=== PATIENT | female | born 1945 | race Caucasian/White ===

== ENCOUNTER 2017-12-06 10:31 | Emergency (ER) | payer MEDICARE, OTHER ==
[~2017-12-06] VITALS: Ht 162.6 cm; Wt 102.6 kg
[~2017-12-06 10:31] MED LIST: AMILORIDE HCL5 MG PO; ATORVASTATIN CA40 MG PO; CYANOCOBAL1000 MCG/M SC; CYANOCOBALAM1000 MCG IJ; EFFEXOR XR75 MG OR; FLUARIX QUADRIV1 INJ IM; FLUZONE SPLT1 M1 IM; GNP POTASSIUM99 MG OR; HYZAAR1 TA1 OR; K-TAB20 MEQ PO; LISINOP/HCTZ1 TAB PO; LOVENOX80 MG/0.8 SC; MAG CITRAT1 PO; MAG-G500 MG PO; MAGNESIUM4 GM/100 M IV; NEXIUM20 M1 OR; NORCO1 TA1 PO; OMEPRAZOLE20 MG PO; SLOW-MAG PO; SODIUM BICAR650 MG PO; TRAMADL/APAP OR; TRAMADOL HCL50 MG PO; TYLENOL PM PO; VENLAFAXINE H37.5 MG PO; VENLAFAXINE37.5 M1 PO; VITAMIN D31000 UNI1 OR; VITAMIN D3400 UNIT PO; VITAMIN D50000 UN1 PO; WARFARIN1 MG PO; WARFARIN2 MG PO; WARFARIN4 MG OR; WARFARIN4 MG PO; ZOCOR10 MG PO; ZOFRAN4 MG/TAB PO; [UNRECOGNIZED DRUG - CODE] PO; [UNRECOGNIZED DRUG - OTHER] PO
[2017-12-06] MEDS ORDERED: WARFARIN1 MG PO (10:47)
[2017-12-06] MEDS ORDERED: SODIUM BICARBI650 MG PO (10:48)
[2017-12-06] MEDS ORDERED: MAGNESI12 PO (11:08)
[2017-12-06 11:55] VITALS: BP 123/74
== END 2017-12-06 11:55 | disposition home or self-care (01) ==
LOC: ED 10:31
DX: S80.01XA Contusion of right knee, initial encounter (principal); S40.011A Contusion of right shoulder, initial encounter; W01.0XXA Fall on same level from slipping, tripping and stumbling without subsequent striking against object, initial encounter; Y93.89 Activity, other specified; Y92.238 Other place in hospital as the place of occurrence of the external cause; E83.42 Hypomagnesemia

== ENCOUNTER 2018-04-06 10:13 | Outpatient (REF) | payer MEDICARE, OTHER ==
[~2018-04-06 10:13] MED LIST changes: +MAGNESI12 PO; +SODIUM BICARBI650 MG PO
[2018-04-06 10:52] LABS: MAGNESIUM 1.4 mg/dL (1.6-2.3); POTASSIUM 4.2 mmol/l (3.5-5.1)
== END 2018-04-06 11:00 | disposition home or self-care (01) ==
LOC: INF 10:13
PROVIDERS: ATTEND Internal Medicine Nephrology
DX: E83.42 Hypomagnesemia (principal)

== ENCOUNTER 2018-08-24 11:08 | Outpatient (REF) | payer MEDICARE, OTHER ==
[2018-08-24 11:48] LABS: MAGNESIUM 1.3 mg/dL (1.6-2.3); POTASSIUM 3.6 mmol/l (3.5-5.1)
== END 2018-08-24 13:25 | disposition home or self-care (01) ==
LOC: INF 11:08
PROVIDERS: ATTEND Internal Medicine Nephrology
DX: E83.42 Hypomagnesemia (principal)

== ENCOUNTER → 2018-08-28 | Outpatient (REF) | payer MEDICARE, OTHER ==
[2018-08-28 10:16] LABS: CREATININE 1.3 mg/dL (0.5-1.0); MAGNESIUM 1.4 mg/dL (1.6-2.3); POTASSIUM 3.8 mmol/l (3.5-5.1)
== END | disposition home or self-care (01) ==
LOC: INF 09:06 → LAB 09:06
PROVIDERS: ATTEND Nurse Practitioner Family
DX: E83.42 Hypomagnesemia (principal); E87.6 Hypokalemia

== ENCOUNTER → 2018-08-30 | Outpatient (REF) | payer MEDICARE, OTHER | END | disposition home or self-care (01) | LOC: DI 10:31 | PROVIDERS: ATTEND Nurse Practitioner Family | DX: R05 Cough (principal); R06.2 Wheezing ==

== ENCOUNTER → 2018-09-04 | Outpatient (REF) | payer MEDICARE, OTHER | END | disposition home or self-care (01) | LOC: LAB 10:16 | PROVIDERS: ATTEND Internal Medicine Nephrology | DX: N18.2 Chronic kidney disease, stage 2 (mild) (principal); E83.42 Hypomagnesemia ==

== ENCOUNTER 2018-10-18 06:50 | Day surgery (SDC) | payer MEDICARE, OTHER ==
[2018-10-18 10:10] VITALS: BP 108/57
== END 2018-10-18 09:39 | disposition home or self-care (01) ==
LOC: ENDO 06:50
PROVIDERS: ATTEND Surgery
PROC: 0DJD8ZZ Inspection of Lower Intestinal Tract, Via Natural or Artificial Opening Endoscopic (ICD-10-PCS; principal; 2018-10-18)
DX: Z12.11 Encounter for screening for malignant neoplasm of colon (principal); K56.609 Unspecified intestinal obstruction, unspecified as to partial versus complete obstruction; K64.4 Residual hemorrhoidal skin tags

== ENCOUNTER 2019-11-27 13:41 | Emergency (ER) | payer MEDICARE, OTHER ==
[2019-11-27 15:40] VITALS: BP 135/71
== END 2019-11-27 15:40 | disposition home or self-care (01) ==
LOC: ED 13:41
DX: M79.642 Pain in left hand (principal); M25.532 Pain in left wrist; I10 Essential (primary) hypertension; M79.89 Other specified soft tissue disorders

== ENCOUNTER 2021-12-04 10:59 | Observation (INO) | payer MEDICARE, OTHER ==
[~2021-12-04] VITALS: Ht 162.6 cm; Wt 88.0 kg
[2021-12-04 11:07] VITALS: BP 136/64
[2021-12-04] MEDS ORDERED: WARFARIN3 MG PO (11:19)
[2021-12-04] MEDS ORDERED: WARFARIN6 MG PO (11:20)
[2021-12-04 11:30] LABS: HEMATOCRIT 37.5 % (37.0-47.0); HEMOGLOBIN 12.1 g/dl (12.0-16.0); MEAN CELL VOLUME 101.9 fL CALC (80.0-100.0); MEAN CORPUSCULAR HGB 32.9 pG CALC (26.0-32.0); MEAN CORPUSCULAR HGB CONC 32.3 g/dL CAL (32.0-36.0); NEUT# 3.09 thou/uL (2.00-7.15); RED BLOOD COUNT 3.68 mill/uL (4.20-5.60); RED CELL DISTRI WIDTH 13.3 % (11.5-15.5)
[2021-12-04 12:05] VITALS: BP 149/60
[2021-12-04 12:09] LABS: ALBUMIN 3.5 g/dL (3.2-5.0); ALKALINE PHOSPHATASE 108 u/l (38-126); BILIRUBIN, TOTAL 0.9 mg/dL (0.0-1.4); BUN 17 mg/dL (8-23); BUN/CREATININE RATIO 16 (12-20 (CALC)); CHLORIDE 110 mmol/l (95-108); GFR FOR AFR.AMER. > 60 ML/MIN (>=60 (CALC)); GFR OTHER RACES 54 ML/MIN (>=60 (CALC)); POTASSIUM 3.5 mmol/l (3.5-5.1); SGOT/AST 29 u/l (9-36); SODIUM 141 mmol/l (137-146); TOTAL PROTEIN 6.9 g/dL (6.3-8.2)
[2021-12-04 12:11] LABS: ANION GAP 13 (6-22 (CALC)); CARBON DIOXIDE 22 mmol/l (22-30)
[2021-12-04 12:16] LABS: PROTHROMBIN TIME 38.6 SECONDS (9.0-12.5)
[2021-12-04 12:20] LABS: URINE BILIRUBIN - DIPSTICK NEGATIVE (NEGATIVE); URINE BLOOD DIPSTICK LARGE (NEGATIVE); URINE COLOR RED; URINE GLUCOSE - DIPSTICK NEGATIVE (NEGATIVE); URINE KETONE NEGATIVE (NEGATIVE); URINE LEUK ESTERASE NEGATIVE (NEGATIVE); URINE PROTEIN - DIPSTICK >=300 mg/dL (NEG-TRACE); URINE SPECIFIC GRAVITY >=1.030; URINE UROBILINOGEN - DIPSTICK 0.2 E.U./dL (0.2)
[2021-12-04 12:23] LABS: URINE NITRITE - DIPSTICK NEGATIVE (Negative); URINE RBC >100 RBC/hpf (0-5)
[2021-12-04 12:24] LABS: URINE COARSE GRANULAR CAST FEW lpf
[2021-12-04 13:01] VITALS: BP 124/57
[2021-12-04 14:13] VITALS: BP 136/66
[2021-12-04] MEDS ORDERED: VITAMIN D1.25 MG PO (14:26)
[2021-12-04 14:51] VITALS: BP 136/66
[2021-12-04 19:22] VITALS: BP 98/49
[2021-12-05 00:04] VITALS: BP 96/45
[2021-12-05 04:14] VITALS: BP 105/44
[2021-12-05 06:00] LABS: HEMATOCRIT 32.4 % (37.0-47.0); HEMOGLOBIN 10.7 g/dl (12.0-16.0); MEAN CELL VOLUME 102.5 fL CALC (80.0-100.0); MEAN CORPUSCULAR HGB 33.9 pG CALC (26.0-32.0); RED BLOOD COUNT 3.16 mill/uL (4.20-5.60); RED CELL DISTRI WIDTH 13.4 % (11.5-15.5)
[2021-12-05 06:06] LABS: INTERNATIONAL NORMALIZED RATIO 3.2 RATIO (0.7-1.3); PROTHROMBIN TIME 31.4 SECONDS (9.0-12.5)
[2021-12-05 06:18] LABS: ANION GAP 9 (6-22 (CALC)); BUN 17 mg/dL (8-23); BUN/CREATININE RATIO 20 (12-20 (CALC)); CARBON DIOXIDE 24 mmol/l (22-30); CHLORIDE 112 mmol/l (95-108); CREATININE 0.9 mg/dL (0.5-1.0); GFR FOR AFR.AMER. > 60 ML/MIN (>=60 (CALC)); GFR OTHER RACES > 60 ML/MIN (>=60 (CALC)); POTASSIUM 3.6 mmol/l (3.5-5.1); SODIUM 141 mmol/l (137-146)
[2021-12-05 07:20] VITALS: BP 93/44
[2021-12-05 10:24] VITALS: BP 102/42
[2021-12-05 15:52] VITALS: BP 110/53
[2021-12-05 19:26] VITALS: BP 111/53
[2021-12-06 00:09] VITALS: BP 92/37
[2021-12-06 04:45] VITALS: BP 91/45
[2021-12-06 05:41] LABS: HEMATOCRIT 30.1 % (37.0-47.0); HEMOGLOBIN 9.5 g/dl (12.0-16.0); MEAN CELL VOLUME 104.5 fL CALC (80.0-100.0); MEAN CORPUSCULAR HGB CONC 31.6 g/dL CAL (32.0-36.0); NEUT# 1.63 thou/uL (2.00-7.15); RED BLOOD COUNT 2.88 mill/uL (4.20-5.60); RED CELL DISTRI WIDTH 13.5 % (11.5-15.5)
[2021-12-06 05:55] LABS: ALKALINE PHOSPHATASE 89 u/l (38-126); ANION GAP 9 (6-22 (CALC)); BILIRUBIN, TOTAL 0.6 mg/dL (0.0-1.4); BUN 16 mg/dL (8-23); BUN/CREATININE RATIO 19 (12-20 (CALC)); CARBON DIOXIDE 22 mmol/l (22-30); CHLORIDE 113 mmol/l (95-108); CREATININE 0.9 mg/dL (0.5-1.0); GFR FOR AFR.AMER. > 60 ML/MIN (>=60 (CALC)); GFR OTHER RACES > 60 ML/MIN (>=60 (CALC)); POTASSIUM 3.6 mmol/l (3.5-5.1); SGOT/AST 22 u/l (9-36); SODIUM 141 mmol/l (137-146)
[2021-12-06 05:56] LABS: ALBUMIN 2.4 g/dL (3.2-5.0); TOTAL PROTEIN 5.2 g/dL (6.3-8.2)
[2021-12-06 06:03] LABS: INTERNATIONAL NORMALIZED RATIO 2.2 RATIO (0.7-1.3); PROTHROMBIN TIME 21.9 SECONDS (9.0-12.5)
[2021-12-06 09:34] VITALS: BP 119/60
[2021-12-06 10:04] LABS: PROTHROMBIN TIME 20.3 SECONDS (9.0-12.5)
[2021-12-06 11:06] VITALS: BP 109/52
== END 2021-12-06 13:40 | disposition home or self-care (01) ==
LOC: ED 10:59 → ED-I 12:25 → ED 12:49 → MS2 12:50
PROVIDERS: Family Medicine; Internal Medicine; ADMIT Internal Medicine; ATTEND Internal Medicine
DX: R31.9 Hematuria, unspecified (principal); D68.32 Hemorrhagic disorder due to extrinsic circulating anticoagulants; T45.515A Adverse effect of anticoagulants, initial encounter; I10 Essential (primary) hypertension; K21.9 Gastro-esophageal reflux disease without esophagitis; F32.A Depression, unspecified; Z86.711 Personal history of pulmonary embolism; Z86.718 Personal history of other venous thrombosis and embolism; Z86.73 Personal history of transient ischemic attack (TIA), and cerebral infarction without residual deficits; Z20.822 Contact with and (suspected) exposure to COVID-19
CPT/HCPCS: G0378

== ENCOUNTER 2022-05-26 13:24 | Inpatient (IN) | payer MEDICARE, OTHER ==
[2022-05-26] VITALS (7 sets, daily range): BP systolic 88–143; BP diastolic 41–82
[~2022-05-26] VITALS: Ht 162.6 cm; Wt 84.0 kg
[~2022-05-26 13:24] MED LIST changes: +VITAMIN D1.25 MG PO; +WARFARIN3 MG PO; +WARFARIN6 MG PO
--- NOTE | 2022-05-26 13:24 | NUR ---
PT TO ROOM VIA WC ABLE TO TRANSFER SELF TO STRETCHER.
[2022-05-26] MEDS ORDERED: WARFARIN2 MG PO (14:01)
[2022-05-26 14:54] LABS: HEMATOCRIT 31.7 % (37.0-47.0); HEMOGLOBIN 10.7 g/dl (12.0-16.0); IMMATURE GRANULOCYTES 0.3 % (0.0-5.0); MEAN CELL VOLUME 99.1 fL CALC (80.0-100.0); MEAN CORPUSCULAR HGB 33.4 pG CALC (26.0-32.0); MEAN CORPUSCULAR HGB CONC 33.8 g/dL CAL (32.0-36.0); NEUT# 12.35 thou/uL (2.00-7.15); RED BLOOD COUNT 3.2 mill/uL (4.20-5.60)
[2022-05-26 15:08] LABS: ALBUMIN 2.8 g/dL (3.2-5.0); ALKALINE PHOSPHATASE 159 u/l (38-126); BUN 12 mg/dL (8-23); BUN/CREATININE RATIO 12 (12-20 (CALC)); CHLORIDE 104 mmol/l (95-108); GFR FOR AFR.AMER. > 60 ML/MIN (>=60 (CALC)); GFR OTHER RACES 54 ML/MIN (>=60 (CALC)); POTASSIUM 3.4 mmol/l (3.5-5.1); SGOT/AST 38 u/l (9-36); SODIUM 136 mmol/l (137-146); TOTAL PROTEIN 6.7 g/dL (6.3-8.2)
[2022-05-26 15:09] LABS: ANION GAP 10 (6-22 (CALC)); BILIRUBIN, TOTAL 2.5 mg/dL (0.0-1.4); CARBON DIOXIDE 25 mmol/l (22-30)
--- NOTE | 2022-05-26 16:00 | NUR ---
PT TO RADIOLOGY VIA WC ACCOMPANIED BY STAFF. ADVISED OF CURRENT POC.
--- NOTE | 2022-05-26 17:00 | NUR ---
red area on face, rt ear, chest outlined for monitoring.
--- NOTE | 2022-05-26 17:35 | NUR ---
pt updated with current poc.
--- NOTE | 2022-05-26 18:35 | NUR ---
pt medicated for c/o headache. lights dimmed comfort measures provide.
--- NOTE | 2022-05-26 19:00 | NUR ---
report provided to nurse shivam
--- NOTE | 2022-05-26 20:00 | NUR ---
PT BROUGHT TO NM IN STABLE CONDITION, NOT WEARING O2. BREATHING IS EVEN AND NON-LABORED, NO C/O SOB OR BREATHING DIFFICULTIES. PT ABLE TO AMBULATE WITH SUPERVISION, MINIMUM ASISTANCE. PT DENIES ANY PAIN OR DISCOMFORT. IV SITE FLUSHED, PATENT. PT ORIEBTATED TO ROOM, CALL SYSTEM AND ENCOURAGED TO USE CALL LIGHT. TELE MONITOR IN PLACE. PT DENIES ANY NEEDS AT THIS TIME. ALL SAFETY PRECAUTIONS IN PLACE AT THIS TIME.
[2022-05-27] VITALS (7 sets, daily range): BP systolic 83–111; BP diastolic 42–61
--- NOTE | 2022-05-27 | NUR ---
PT SLEEPING IN BED EASILY AROUSIBLE. PT SLIGHTLY CONFUSED WHEN WOKEN UP BUT EASILY REORIENTATED. PT BREATHING EVEN AND NON LABORED. IV SITE PATENT. PT DENIES NEEDING TO USE RESTROOM, NEEDING A DRINK/SNACK AND DENIES PAIN. DENIES ANY FURTHER NEEDS. ALL SAFETY PRECAUTIONS IN PLACE AT THIS TIME
--- NOTE | 2022-05-27 00:25 | NUR ---
CHECKED ON PT DUE TO LOW BLOOD PRESSURE. PT EASILY ARROUSED, SPEECH CLEAR, A/OX3. PT DID STAY AWAKE FOR SMALL CONVERSATION. PT DENIES ANY ODD FEELING OR PAIN. PT DENIES ANY NEEDS AT THIS TIME.
--- NOTE | 2022-05-27 03:16 | NUR ---
PT IN ROOM SLEEPING, AROUSED TO TOUCH. PT BREATHING REMAINS THE SAME. PT DENIES ANY NEEDS AT THIS TIME. TELE MONITOR IN PLACE. ALL SAFETY PRECAUTIONS IN PLACE AT THIS TIME.
[2022-05-27 05:28] LABS: HEMATOCRIT 30.7 % (37.0-47.0); HEMOGLOBIN 10.2 g/dl (12.0-16.0); MEAN CELL VOLUME 99.4 fL CALC (80.0-100.0); MEAN CORPUSCULAR HGB CONC 33.2 g/dL CAL (32.0-36.0); RED BLOOD COUNT 3.09 mill/uL (4.20-5.60); RED CELL DISTRI WIDTH 14.8 % (11.5-15.5)
[2022-05-27 06:06] LABS: ANION GAP 13 (6-22 (CALC)); BUN 13 mg/dL (8-23); BUN/CREATININE RATIO 13 (12-20 (CALC)); CARBON DIOXIDE 23 mmol/l (22-30); CHLORIDE 108 mmol/l (95-108); GFR FOR AFR.AMER. > 60 ML/MIN (>=60 (CALC)); GFR OTHER RACES 54 ML/MIN (>=60 (CALC)); POTASSIUM 3.5 mmol/l (3.5-5.1); SODIUM 140 mmol/l (137-146)
[2022-05-27 06:36] LABS: INTERNATIONAL NORMALIZED RATIO 4.5 RATIO (0.7-1.3); PROTHROMBIN TIME 41.7 SECONDS (9.0-12.5)
--- NOTE | 2022-05-27 06:43 | NUR ---
HIGH LABS RECIEVED FROM EDMEÑO IN LAB, INR 4.5 AND PT 41.7. INFORMED HEMMER CHAINSTITCH PHYSICAN AND WAS TOLD TO HOLD WARFARIN. WILL PASS ON IN REPORT.
--- NOTE | 2022-05-27 08:00 | NUR ---
BEDSIDE SHIFT REPORT, PT AWAKE ALERT AND ORIENTED RESTING IN BED, RIGHT FACE SWOLEN AND HARD, C/O MILD DISCOMFORT AT THIS TIME TO AREA, TELE MONITOR IN PLACE, CALL MODI IN REACH AND BED LOCKED IN LOWEST POSITION.
--- NOTE | 2022-05-27 12:05 | NUR ---
NO NEW COMPLAINS, CONDITION STABLE.
--- NOTE | 2022-05-27 14:51 | NUR ---
S: CATRACHITA YIP is a 76 F who presents with CELLULITIS . She has a history of SSTI. All medications in patient's chart were reviewed. O: VS: BP 90/50, P 76, RR 17,T 98.1 W 84KG, HT 64IN,CrCl= 64ml/min A: Blood culture is pending Urine culture is pending P: Vancomycin ordered for pharmacy to dose. Start Vancomycin 1 GRAM IV Q12H. Vancomycin trough is drawn before the 4th dose on 05/28/22 @0800. Vancomycin goal trough is between <15-20 mcg/ml>. Pharmacy will follow and or advise on antibiotics use as needed. JAMES KUD
--- NOTE | 2022-05-27 16:00 | NUR ---
RESTING IN BED, C/O PAIN TO LEFT FACE, MEDICATED, PAIN IMPROVED
[2022-05-27 20:15] LABS: URINE BILIRUBIN - DIPSTICK NEGATIVE (NEGATIVE); URINE BLOOD DIPSTICK NEGATIVE (NEGATIVE); URINE GLUCOSE - DIPSTICK NEGATIVE (NEGATIVE); URINE KETONE TRACE mg/dL (NEGATIVE); URINE LEUK ESTERASE NEGATIVE (NEGATIVE); URINE PROTEIN - DIPSTICK 30 mg/dL (NEG-TRACE); URINE SPECIFIC GRAVITY 1.025; URINE UROBILINOGEN - DIPSTICK 0.2 E.U./dL (0.2)
[2022-05-27 20:17] LABS: URINE COLOR DK. YELLOW; URINE NITRITE - DIPSTICK NEGATIVE (Negative)
[2022-05-27 20:23] LABS: URINE RBC 0-2 RBC/hpf (0-5); URINE SQUAMOUS EPITHELIAL CELL FEW EPI/hpf (0-FEW); URINE WBC 0-2 WBC/hpf (0-5)
--- NOTE | 2022-05-27 21:10 | NUR ---
PATIENT RESTING QUIETLY IN BED. ALERT AND ORIENTED X3. ASSESSMENT COMPLETE, PM MEDS ADMINISTERED. C/O MILD PAIN 2/, DECLINES OFFER OF TYLENOL. CALL LIGHT WITHIN REACH, INSTRUCTED TO CALL FOR ASSISTANCE.
[2022-05-28] VITALS (8 sets, daily range): BP systolic 90–110; BP diastolic 43–54
[2022-05-28 05:10] LABS: HEMATOCRIT 26.4 % (37.0-47.0); HEMOGLOBIN 8.8 g/dl (12.0-16.0); MEAN CELL VOLUME 98.5 fL CALC (80.0-100.0); MEAN CORPUSCULAR HGB 32.8 pG CALC (26.0-32.0); MEAN CORPUSCULAR HGB CONC 33.3 g/dL CAL (32.0-36.0); RED BLOOD COUNT 2.68 mill/uL (4.20-5.60); RED CELL DISTRI WIDTH 15.1 % (11.5-15.5)
[2022-05-28 05:17] LABS: INTERNATIONAL NORMALIZED RATIO 4.4 RATIO (0.7-1.3); PROTHROMBIN TIME 41.2 SECONDS (9.0-12.5)
[2022-05-28 05:33] LABS: ANION GAP 8 (6-22 (CALC)); BUN 13 mg/dL (8-23); BUN/CREATININE RATIO 14 (12-20 (CALC)); CARBON DIOXIDE 22 mmol/l (22-30); CHLORIDE 111 mmol/l (95-108); CREATININE 0.9 mg/dL (0.5-1.0); GFR FOR AFR.AMER. > 60 ML/MIN (>=60 (CALC)); GFR OTHER RACES > 60 ML/MIN (>=60 (CALC)); POTASSIUM 3.2 mmol/l (3.5-5.1); SODIUM 137 mmol/l (137-146)
[2022-05-28 05:51] LABS: MAGNESIUM 0.9 mg/dL (1.6-2.3)
--- NOTE | 2022-05-28 07:16 | NUR ---
BEDSIDE REPORT GIVEN, PT SLEEPING BUT AROUSES TO VERBAL STIMULI, C/O MILD PAIN TO RIGHT FACE, TELE MONITORIN PLACE, CALL MODI IN REACH AND BED LOCKED IN LOWEST POSITION.
--- NOTE | 2022-05-28 11:11 | NUR ---
S: CATRACHITA YIP is a 76 F who presents with CELLUITIS OF FACE She has a history of HYPERTENSION, GERD, DEPRESSION, HYPOKALEMIA, AND HYPOMAGNESIA. All medications in patient's chart were reviewed. O: VS: BP 99/51mmHg, P 75bpm, RR 18bpm,T 96.5F W 84kg, HT 64inches, Scr=0.9mg/dL,CrCl= 51ml/min A: Blood culture (preliminary) shows 1/4 gram positive cocci. P: Patient is on ZOYSN 3.375g IV Q6H. Vancomycin ordered for pharmacy to dose. CONTINUE Vancomycin 1g IV Q12H. Vancomycin trough is drawn before the 4th dose on 05/29/2022 @ 20:00. Vancomycin goal trough is between <10-15 mcg/ml>. Pharmacy will follow and or advise on antibiotics use as needed.
--- NOTE | 2022-05-28 11:52 | NUR ---
SITTING UP IN RECLINER, IV MEDS INFUSING, NO NEW COMPLAINS, CALL MODI IN REACH.
--- NOTE | 2022-05-28 13:29 | NUR ---
ASSISTED TO BR THEN BACK TO BED FOR AFTERNOON REST/NAP, CALL MODI IN REACH
--- NOTE | 2022-05-28 15:42 | NUR ---
PRELIMINARY BC RESULTS SHOW GRAM (+) COCCI IN 1/[address] V[address] RESULTS REPORTED TO DR DIAZ. PATIENT CURRENTLY RECEIVING VANCOMYCIN 1GM IV Q12H. NO NEW ORDERS.
[2022-05-29 04:15] VITALS: BP 92/52
[2022-05-29 05:42] LABS: HEMATOCRIT 25.5 % (37.0-47.0); HEMOGLOBIN 8.6 g/dl (12.0-16.0); MEAN CELL VOLUME 98.5 fL CALC (80.0-100.0); MEAN CORPUSCULAR HGB 33.2 pG CALC (26.0-32.0); MEAN CORPUSCULAR HGB CONC 33.7 g/dL CAL (32.0-36.0); RED BLOOD COUNT 2.59 mill/uL (4.20-5.60); RED CELL DISTRI WIDTH 15.3 % (11.5-15.5)
[2022-05-29 05:48] LABS: INTERNATIONAL NORMALIZED RATIO 3.5 RATIO (0.7-1.3); PROTHROMBIN TIME 33.2 SECONDS (9.0-12.5)
[2022-05-29 05:51] LABS: ANION GAP 7 (6-22 (CALC)); BUN 13 mg/dL (8-23); BUN/CREATININE RATIO 14 (12-20 (CALC)); CARBON DIOXIDE 25 mmol/l (22-30); CHLORIDE 110 mmol/l (95-108); CREATININE 0.9 mg/dL (0.5-1.0); GFR FOR AFR.AMER. > 60 ML/MIN (>=60 (CALC)); GFR OTHER RACES > 60 ML/MIN (>=60 (CALC)); POTASSIUM 3.5 mmol/l (3.5-5.1); SODIUM 138 mmol/l (137-146)
[2022-05-29 05:59] LABS: MAGNESIUM 1.7 mg/dL (1.6-2.3)
[2022-05-29 07:16] VITALS: BP 111/55
--- NOTE | 2022-05-29 07:36 | NUR ---
RECEIVED REPORT FROM OFF GOING NURSE. AWAKE IN BED. AM IV ABT INFUSION COMPLETED. NO S/S OF ADVERSE REACTIONS NOTED.
[2022-05-29 10:28] VITALS: BP 97/43
--- NOTE | 2022-05-29 11:18 | NUR ---
DR SHEYLA GORDILLO ON PT.
[2022-05-29 14:44] VITALS: BP 102/53
--- NOTE | 2022-05-29 15:00 | NUR ---
SITTING UP IN BED WATCHING TV.
--- NOTE | 2022-05-29 18:05 | NUR ---
HAVING DINNER AT THIS TIME.
[2022-05-29 18:47] VITALS: BP 127/61
--- NOTE | 2022-05-29 20:45 | NUR ---
PT IN BED RESTING WATCHING TV BREATHING EVEN UNLABORED. NO S/S OF DISTRESS NOTED. ASSESMENT COMPLETED. DENIES PAIN OR DISCOMFORT. CALL LIGHT IN REACH AND BED IN LOWEST POSITION.
--- NOTE | 2022-05-30 00:50 | NUR ---
PT IN BED RESTING WITH EYES CLOSED BREATHING EVEN AND UNLABORED. NO S/S OF DISTRESS NOTED. CALL LIGHT IN REACH AND BED IN LOWEST POSITION.
[2022-05-30 03:51] VITALS: BP 106/57
--- NOTE | 2022-05-30 04:45 | NUR ---
PT IN BED RESTING WITH EYES CLOSED BREATHING EVEN AND UNLABORED. NO S/S OF DISTRESS NOTED. CALL LIGHT IN REACH AND BED IN LOWEST POSITION.
[2022-05-30 05:18] LABS: HEMATOCRIT 27.6 % (37.0-47.0); HEMOGLOBIN 9.2 g/dl (12.0-16.0); MEAN CORPUSCULAR HGB 33.3 pG CALC (26.0-32.0); MEAN CORPUSCULAR HGB CONC 33.3 g/dL CAL (32.0-36.0); RED BLOOD COUNT 2.76 mill/uL (4.20-5.60); RED CELL DISTRI WIDTH 15.2 % (11.5-15.5)
[2022-05-30 05:41] LABS: INTERNATIONAL NORMALIZED RATIO 3.3 RATIO (0.7-1.3); PROTHROMBIN TIME 31.4 SECONDS (9.0-12.5)
[2022-05-30 05:54] LABS: ANION GAP 5 (6-22 (CALC)); BUN 11 mg/dL (8-23); BUN/CREATININE RATIO 12 (12-20 (CALC)); CARBON DIOXIDE 26 mmol/l (22-30); CHLORIDE 110 mmol/l (95-108); CREATININE 0.9 mg/dL (0.5-1.0); GFR FOR AFR.AMER. > 60 ML/MIN (>=60 (CALC)); GFR OTHER RACES > 60 ML/MIN (>=60 (CALC)); MAGNESIUM 1.5 mg/dL (1.6-2.3); POTASSIUM 3.3 mmol/l (3.5-5.1); SODIUM 138 mmol/l (137-146)
[2022-05-30 06:24] VITALS: BP 99/49
[2022-05-30 06:47] VITALS: BP 105/50
--- NOTE | 2022-05-30 08:00 | NUR ---
GOT REPORT FROM DIRECTOR OF INSTRUMENTAL MUSIC NURSE. PATIENT ASSESSED, PATIENT IS AOX3, IN BED EATING BREAKFAST AND WATCHING TELEVISION. PATIENT DENIES ANY DISTRESS NOR DISCOMFORT. PATIENT HAS CALL LIGHT AND BED SIDE TABLE WITH IN REACH. ADVISED TO CALL IF SHE NEEDED ANYTHING. PATIENT VERBALIZED UNDERSTANDING.
--- NOTE | 2022-05-30 12:00 | NUR ---
PATIENT IS SITTING IN BED AND EATING LUNCH. PATIENT JUST FINISHED HAVING A WASH DOWN. PATIENT DENIES ANY DISTRESS. CALL LIGHT AND BEDSIDE TABLE WITHIN REACH. ADVISED PATIENT TO CALL IF NEEDING ANYTHING. PATIENT VERBALIZED UNDERSTANDING.
--- NOTE | 2022-05-30 12:15 | NUR ---
The patient is screened fro PT intervention and no needs are identified at this time
[2022-05-30 15:17] VITALS: BP 107/53
[2022-05-30 19:14] VITALS: BP 113/58
--- NOTE | 2022-05-30 20:48 | NUR ---
PT IN BED WATCHIN TV.NO S/S OF DISTRESS NOTED. DENIES PAIN AT THIS TIME. ASSESMENT COMPPLETED. CALL LIGHT IN REACH AND BE DIN LOWEST POSITION.
[2022-05-31 00:18] VITALS: BP 103/45
--- NOTE | 2022-05-31 00:55 | NUR ---
PT IN BED RESTING WITH EYES CLOSED BREATHING EVEN AND UNLABORED. NO S/S OF DISTRESS NOTED CALL LIGHT IN REACH AND BED IN LOWEST POSITION.
--- NOTE | 2022-05-31 04:20 | NUR ---
PT IN BED RESTING WITH EYES CLOSED BREATHING EVEN AND UNLABORED. NO S/S OF DISTRESS NOTED. CALL LIGHT IN REACH AND BED IN LOWEST POSITION.
[2022-05-31 04:26] VITALS: BP 111/56
[2022-05-31 04:59] LABS: HEMATOCRIT 24.7 % (37.0-47.0); HEMOGLOBIN 8.2 g/dl (12.0-16.0); MEAN CORPUSCULAR HGB 33.2 pG CALC (26.0-32.0); MEAN CORPUSCULAR HGB CONC 33.2 g/dL CAL (32.0-36.0); RED BLOOD COUNT 2.47 mill/uL (4.20-5.60); RED CELL DISTRI WIDTH 15.2 % (11.5-15.5)
[2022-05-31 05:16] LABS: PROTHROMBIN TIME 37.6 SECONDS (9.0-12.5)
[2022-05-31 05:22] LABS: ANION GAP 5 (6-22 (CALC)); BUN 10 mg/dL (8-23); BUN/CREATININE RATIO 12 (12-20 (CALC)); CARBON DIOXIDE 25 mmol/l (22-30); CHLORIDE 111 mmol/l (95-108); CREATININE 0.8 mg/dL (0.5-1.0); GFR FOR AFR.AMER. > 60 ML/MIN (>=60 (CALC)); GFR OTHER RACES > 60 ML/MIN (>=60 (CALC)); MAGNESIUM 1.6 mg/dL (1.6-2.3); POTASSIUM 3.6 mmol/l (3.5-5.1); SODIUM 137 mmol/l (137-146)
[2022-05-31 06:22] VITALS: BP 107/55
--- NOTE | 2022-05-31 07:36 | NUR ---
PT A/OX3 ASSESSMENT AND VS COMPLETED. PT LUNG SOUNDS TO RIGHT LUNG CRACKLES. PT IV SITES NOTED. S.L. PT DENIES ADDITIONAL NEEDS AT THE TIME ALL SAFETY PRECAUTIONS IN PLACE WITH CALL LIGHT INREACH.
--- NOTE | 2022-05-31 09:44 | NUR ---
PLACED CONSULTATION IN FOR DR MUÑOZ ON TABLET FOR BACTEREMIA.
--- NOTE | 2022-05-31 12:08 | NUR ---
PT RESTING IN HIGH FOWLERS POSITION PT ABLE TO USE WALKER TO AMBULATE.
--- NOTE | 2022-05-31 12:47 | NUR ---
PT TEDHOSE APPLIED.
[2022-05-31 15:50] VITALS: BP 122/54
--- NOTE | 2022-05-31 16:07 | NUR ---
PT RESTING IN HIGH FOWLERS POSITION PT DENIES ADDITIONAL NEEDS AT THE TIME ALL SAFETY PRECAUTIONS IN PLACE.
--- NOTE | 2022-05-31 19:00 | NUR ---
BEDSIDE SHIFT REPORT COMPLETE. PATIENT RESTING IN BED WATCHING TV. NO CONCERNS EXPRESSED. CALL LIGHT WITHIN REACH.
[2022-05-31 19:04] VITALS: BP 120/62
--- NOTE | 2022-05-31 20:34 | NUR ---
ASSESSMENT COMPLETE. PATIENT ALERT AND ORIENTED X3, VSS. NO DISTRESS NOTED. DENIES PAIN AT THIS TIME. OFFERED ASSISTANCE TO BATHROOM DECLINED AT THIS TIME. BED IN LOW POSITION, LOCKED. CALL LIGHT WITHIN REACH, INSTRUCTED TO CALL FOR ASSISTANCE.
[2022-05-31 23:58] VITALS: BP 101/56
[2022-06-01] VITALS (8 sets, daily range): BP systolic 92–125; BP diastolic 42–55
[2022-06-01 05:49] LABS: PROTHROMBIN TIME 37.6 SECONDS (9.0-12.5)
--- NOTE | 2022-06-01 07:41 | NUR ---
PT RESTING IN SEMI FOWLERS POSITION.PT A/OX3 ASSESSMENT AND VS COMPLETED. PT IV SITE NOTED TO RIGHT ARM. S.L PT STATED BM 05/31/22 AFTERNOON. PT DENIES ADDITIONAL NEEDS AT THE TIME ALL SAFETY PRECAUTIONS IN PLACE WITH CALL LIGHT INREACH.
--- NOTE | 2022-06-01 12:01 | NUR ---
PT RESTING IN SEMI FOWLERS POSITION. PT DENIES ADDITIONAL NEEDS AT THE TIME ALL SAFETY PRECAUTIONS IN PLACE CALL LIGHT INREACH.
--- NOTE | 2022-06-01 16:14 | NUR ---
PT RESTING IN SEMI FOWLERS POSITION DENIES ADDITIONAL NEEDS AT THE TIME.
--- NOTE | 2022-06-01 21:30 | NUR ---
PT ALERT, ORIENTED X3, ABLE TO MAKE NEEDS KNOWN. HR-RRR, PT DENIES PAIN, CHEST PAIN, PRESSURE, NO EDEMA NOTED. LUNG SOUNDS CLEAR, PT DENIES SOB, DIFFICULTY BREATHING. ABD SOFT, NONTENDER, BT PRESENT, PT DENIES NAUSEA. CMS INTACT. PT DECLINES SCD. PT DECLINES OTHER NEEDS AT THIS TIME. PT RESTING IN NO SIGN OF DISCOMFORT.
[2022-06-02] VITALS (10 sets, daily range): BP systolic 90–114; BP diastolic 41–62
--- NOTE | 2022-06-02 00:54 | NUR ---
PT BP 90/54, RECHECK BP 96/58. PT ASYMPTOMATIC. PT STATES, 'I FEEL GOOD'. PT DENIES OTHER NEEDS AT THIS TIME. PT RESTING IN NO SIGN OF DISCOMFORT. WILL CONTINUE TO MONITOR.
--- NOTE | 2022-06-02 03:47 | NUR ---
PT SLEEPING IN NO SIGN OF DISCOMFORT. WILL CONTINUE TO MONITOR.
--- NOTE | 2022-06-02 06:05 | NUR ---
PT SITTING UP IN BED, WATCHING TV. PT DENIES NEEDS AT THIS TIME. WILL CONTINUE TO MONITOR.
[2022-06-02 06:20] LABS: HEMOGLOBIN 8.9 g/dl (12.0-16.0); MEAN CELL VOLUME 101.5 fL CALC (80.0-100.0); MEAN CORPUSCULAR HGB 33.5 pG CALC (26.0-32.0); RED BLOOD COUNT 2.66 mill/uL (4.20-5.60)
[2022-06-02 06:32] LABS: ANION GAP 5 (6-22 (CALC)); BUN 9 mg/dL (8-23); BUN/CREATININE RATIO 9 (12-20 (CALC)); CARBON DIOXIDE 30 mmol/l (22-30); CHLORIDE 107 mmol/l (95-108); GFR FOR AFR.AMER. > 60 ML/MIN (>=60 (CALC)); GFR OTHER RACES 54 ML/MIN (>=60 (CALC)); POTASSIUM 4.1 mmol/l (3.5-5.1); SODIUM 138 mmol/l (137-146)
[2022-06-02 07:57] LABS: INTERNATIONAL NORMALIZED RATIO 4.4 RATIO (0.7-1.3)
--- NOTE | 2022-06-02 08:00 | NUR ---
BEDSIDE REPORT RECEIVED FROM AVIATION TACTICAL READINESS OFFICER NURSE. PATIENT ASSESSED. AOX3. PT RESTING IN BED WATCHING TV. DISCUSSED POC WITH PATIENT. NO QUESTIONS NOR COMPLAINTS VOICED AT THIS TIME. ALL PERSONAL ITEMS WITHIN REACH. SAFETY PRECAUTIONS IN PLACE. WILL CONTINUE TO MONITOR.
[2022-06-02 08:39] LABS: TOTAL PROTEIN 5.4 g/dL (6.3-8.2)
[2022-06-02 08:46] LABS: ALBUMIN 2.1 g/dL (3.2-5.0); BILIRUBIN, TOTAL 0.6 mg/dL (0.0-1.4)
--- NOTE | 2022-06-02 12:00 | NUR ---
PATIENT SITTING UP IN BED EATING LUNCH. TELEVISION AND LIGHTS ARE OFF WHILE SHE IS EATING. I OFFERED TO TURN ON THE LIGHTS OR TV AND PATIENT REFUSED IT. I OFFERED TO OPEN WINDOW BLINDS. PATIENT ALLOWED THAT. OPENED BLINDS TO ALLOW SOME LIGHT IN. PATIENT STATES THAT SHE IS JUST TIRED TODAY. I INFORMED HER THAT WE WOULD TRY TO ALLOW HER TO REST TODAY. PATIENT SEEMED GRATFUL. CALL LIGHT WITHIN REACH. ADVISED TO CALL IF SHE NEEDS ANYTHING.
--- NOTE | 2022-06-02 16:00 | NUR ---
PATIENT SLEEPING. NO SXS OF DISTRESS OR DICOMFORT.
--- NOTE | 2022-06-02 19:30 | NUR ---
RECIEVED REPORT ON PT. ASSESSED PT AT BED SIDE. IV SITE FLUSHED, PATENT. ALERT AND ORIENTATED X3. BREATHING EVEN AND NON LABORED. PT ASSISTED TO BATHROOM. PT DENIES ANY NEEDS AT THIS TIME. ALL SAFETY PRECAUTIONS IN PLACE AT THIS TIME.
[2022-06-03] VITALS (10 sets, daily range): BP systolic 100–122; BP diastolic 42–61
--- NOTE | 2022-06-03 | NUR ---
PT SLEEPING. EASILY AROUSED, A/O X3. BREATHING REMAINS THE SAME. DENIES ANY NEEDS AT THIS TIME. ALL SAFETY PRECAUTIONS IN PLACE AT THIS TIME
--- NOTE | 2022-06-03 03:45 | NUR ---
PT REMAINS TO BE SLEEPING, NO SIGNS OF RESPIRATORY DISTRESS. PT EASILY AROUSED. PT DENIES ANY NEEDS AT THIS TIME. ALL SAFETY PRECAUTIONS IN PLACE AT THIS TIME
[2022-06-03 06:19] LABS: INTERNATIONAL NORMALIZED RATIO 5.6 RATIO (0.7-1.3); PROTHROMBIN TIME 51.8 SECONDS (9.0-12.5)
[2022-06-03 09:34] LABS: ACT PARTIAL THROMBO TIME 41.2 SECONDS (20.0-32.5)
--- NOTE | 2022-06-03 14:53 | NUR ---
Patient sitting in recliner with heating blanket on. States she feels great today. Up to bathroom with standby assist.
--- NOTE | 2022-06-03 20:15 | NUR ---
RECEIVED REPORT FROM ANAMIKA MACHUCA. PT SITTING ON BED LOW FOWLERS: A&O X3. EVEN AND UNLABORED RESPIRATIONS ON MIRIAM. TELEMETRY IN PLACE. IV SITE HEALTHY AND PATENT. ACTIVE BOWEL SOUNDS X4 QUADRANTS. SAFETY PRECAUTIONS IN PLACE WITH CALL LIGHT IN REACH.
[2022-06-03 21:03] LABS: INTERNATIONAL NORMALIZED RATIO 3.1 RATIO (0.7-1.3); PROTHROMBIN TIME 28.9 SECONDS (9.0-12.5)
--- NOTE | 2022-06-04 00:15 | NUR ---
PT RESTING ON BED. WARM BLANKET PROVIDED PER PT'S REQUEST. NO DISTRESS NOTED. PT DENIES PAIN AT THIS TIME. SAFETY PRECAUTIONS IN PLACE WITH CALL LIGHT IN REACH.
--- NOTE | 2022-06-04 04:05 | NUR ---
PT RESTING WITH EYES CLOSED. NO DISTRESS OR PAIN NOTED. TELEMETRY IN PLACE. IV SITE HEALTHY AND PATENT. NO NEEDS AT THIS TIME. SAFETY PRECAUTIONS IN PLACE WITH CALL LIGHT IN REACH.
[2022-06-04 04:23] VITALS: BP 99/50
[2022-06-04 05:51] LABS: HEMATOCRIT 24.1 % (37.0-47.0); HEMOGLOBIN 8.1 g/dl (12.0-16.0); MEAN CELL VOLUME 99.6 fL CALC (80.0-100.0); MEAN CORPUSCULAR HGB 33.5 pG CALC (26.0-32.0); MEAN CORPUSCULAR HGB CONC 33.6 g/dL CAL (32.0-36.0); RED BLOOD COUNT 2.42 mill/uL (4.20-5.60); RED CELL DISTRI WIDTH 14.8 % (11.5-15.5)
[2022-06-04 06:03] LABS: INTERNATIONAL NORMALIZED RATIO 2.8 RATIO (0.7-1.3); PROTHROMBIN TIME 26.6 SECONDS (9.0-12.5)
[2022-06-04 06:08] LABS: ALBUMIN 2.2 g/dL (3.2-5.0); ALKALINE PHOSPHATASE 96 u/l (38-126); ANION GAP 6 (6-22 (CALC)); BILIRUBIN, TOTAL 0.8 mg/dL (0.0-1.4); BUN 13 mg/dL (8-23); BUN/CREATININE RATIO 14 (12-20 (CALC)); CARBON DIOXIDE 29 mmol/l (22-30); CHLORIDE 105 mmol/l (95-108); CREATININE 0.9 mg/dL (0.5-1.0); GFR FOR AFR.AMER. > 60 ML/MIN (>=60 (CALC)); GFR OTHER RACES > 60 ML/MIN (>=60 (CALC)); POTASSIUM 3.8 mmol/l (3.5-5.1); SGOT/AST 30 u/l (9-36); SODIUM 137 mmol/l (137-146); TOTAL PROTEIN 5.3 g/dL (6.3-8.2)
[2022-06-04 06:12] LABS: MAGNESIUM 1.1 mg/dL (1.6-2.3)
[2022-06-04 06:56] VITALS: BP 113/47
--- NOTE | 2022-06-04 08:00 | NUR ---
RECEIVED REPORT FROM CONTRACT ADMINISTRATION MANAGER RN. PATIENT RESTING IN BED IN LOW SEMI FOLWERS POSITION WITH EYES CLOSED. PATIENT IS A&OX3 AND ABLE TO MAKE NEEDS KNOWN. PATIENT DENIES ANY DISCOMFORT OR PAIN AT THIS TIME. PT HAS TELE MONITOR IN PLACE, MONITORED BY ED. IV IS PATENT AND FLUSHES WELL. PT IS IN ROOM AIR. ASSESSMENT COMPLETED. CALL LIGHT AND BEDSIDE TABLE WITHIN REACH.
[2022-06-04 10:00] VITALS: BP 98/53
--- NOTE | 2022-06-04 12:00 | NUR ---
PATIEN RESTING IN BED IN SEMI FOWLERS POSITION, AWAKE, WATCHING TV. PAITENT DENIES ANY DISCOMFORT OR PAIN AT THIS TIME. BED IN LOWEST POSITION, CALL LIGHT AND BEDSIDE TABLE WITHIN REACH.
[2022-06-04 14:41] VITALS: BP 102/48
--- NOTE | 2022-06-04 16:00 | NUR ---
PATIENT RESTING IN BED IN LOW SEMI FOWLERS POSITION WITH EYES CLOSED. IV IS PATENT AND FLUSHES WELL. NO SIGNS OF DISTRESS NOTED AT THIS TIME. CALL LIGHT AND BEDSIDE TABLE WITHIN REACH. SAFETY PRECAUTIONS IN PLACE.
[2022-06-04 18:47] VITALS: BP 99/45
--- NOTE | 2022-06-04 19:00 | NUR ---
RECEIVED REPORT FROM EUFEMIA PADILLA.
--- NOTE | 2022-06-04 20:15 | NUR ---
PT ASSISTED TO BATHROOM. PT BACK IN BED. PT A&O X3. EVEN AND UNLABORED RESPIRATIONS: CLEAR LUNG SOUNDS UPON AUSCULTATION. TELEMETRY IN PLACE. IV FLUSHED: #22G RT FA, HEALTHY AND PATENT. PICCLINE TO RT UPPER ARM, HEALTHY AND PATENT. ACTIVE BOWEL SOUNDS X4 QUADRANTS. SAFETY PRECAUTIONS IN PLACE WITH CALL LIGHT IN REACH.
[2022-06-05] VITALS (11 sets, daily range): BP systolic 87–123; BP diastolic 33–71
--- NOTE | 2022-06-05 00:20 | NUR ---
PT RESTING WITH EYES CLOSED. NO DISTRESS OR PAIN NOTED. CRISTIAN HUGGER IN PLACE PER PT'S REQUEST. SAFETY PRECAUTIONS AND BED ON LOWEST POSITION. BEDSIDE TABLE AND CALL LIGHT IN REACH.
--- NOTE | 2022-06-05 04:00 | NUR ---
PT RESTING ON BED. NO DISTRESS OR PAIN NOTED. PICC LINE FLUSHED, HEALTHY AND PATENT. WARM COMPRESS PROVIDED PER PT'S REQUEST. REMOVED IV #22 RT FA, CATHETER INTACT UPON REMOVAL, PT TOLERATED WELL. SAFETY PRECAUTIONS IN PLACE WITH CALL LIGHT IN REACH.
[2022-06-05 06:02] LABS: HEMATOCRIT 25.1 % (37.0-47.0); HEMOGLOBIN 8.4 g/dl (12.0-16.0); MEAN CELL VOLUME 101.2 fL CALC (80.0-100.0); MEAN CORPUSCULAR HGB 33.9 pG CALC (26.0-32.0); MEAN CORPUSCULAR HGB CONC 33.5 g/dL CAL (32.0-36.0); RED BLOOD COUNT 2.48 mill/uL (4.20-5.60); RED CELL DISTRI WIDTH 14.9 % (11.5-15.5)
[2022-06-05 06:26] LABS: ANION GAP 5 (6-22 (CALC)); BUN 15 mg/dL (8-23); BUN/CREATININE RATIO 16 (12-20 (CALC)); CARBON DIOXIDE 31 mmol/l (22-30); CHLORIDE 106 mmol/l (95-108); CREATININE 0.9 mg/dL (0.5-1.0); GFR FOR AFR.AMER. > 60 ML/MIN (>=60 (CALC)); GFR OTHER RACES > 60 ML/MIN (>=60 (CALC)); INTERNATIONAL NORMALIZED RATIO 2.5 RATIO (0.7-1.3); POTASSIUM 3.9 mmol/l (3.5-5.1); PROTHROMBIN TIME 23.5 SECONDS (9.0-12.5); SODIUM 137 mmol/l (137-146)
--- NOTE | 2022-06-05 07:40 | NUR ---
PT RESTING IN BED, NO SIGNS OF DISTRESS NOTED, RESP EVEN AND UNLABORED. PT ALERT AND ORIENTED X3,DISCUSSED POC, PT DENIES ANY NEEDS OR COMPLAINTS AT THIS TIME. ASSESSMENT COMPLETED, CALL LIGHT IN REACH,CONTINUE TO MONITOR.
--- NOTE | 2022-06-05 12:00 | NUR ---
PT SITTING IN RECLINER AT BEDSIDE EATING LUNCH, NO SIGNS OF DISTRESS NOTED, RESP EVEN AND UNLABORED. CALL LIGHT IN REACH,CONTINUE TO MONITOR.
--- NOTE | 2022-06-05 14:00 | NUR ---
PT RESTING IN BED, IV ANTIBIOTIC INITIATED, VOICES NO NEEDS OR COMPLAINTS AT THIS TIME, CALL LIGHT IN REACH,CONTINUE TO MONITOR.
--- NOTE | 2022-06-05 19:20 | NUR ---
RECIEVED REPORT ON PT . [facility] BREATHING EVEN AND NON LABORED, NO REPORTED SOB. PT STATED HAVING 3 BM TODAY. ALERT AND ORIENTATED X3. PICC LINE FLUSHED, GOOD BLOOD RETURN.TELE IN PLACE. PT DENIES ANY NEEDS AT THIS TIME. ALL SAFETY PRECAUTIONS IN PLACE AT THIS TIME
[2022-06-06] VITALS (7 sets, daily range): BP systolic 85–104; BP diastolic 43–53
--- NOTE | 2022-06-06 00:15 | NUR ---
PT SLEEPING. BREATHING REMAINS EVEN AND NONLABORED. PT DENIES ANY NEEDS AT THIS TIME. ALL SAFETY PRECAUTIONS IN PLACE AT THIS TIME
[2022-06-06 05:27] LABS: HEMATOCRIT 24.1 % (37.0-47.0); HEMOGLOBIN 7.9 g/dl (12.0-16.0); IMMATURE GRANULOCYTES 0.2 % (0.0-5.0); MEAN CELL VOLUME 102.1 fL CALC (80.0-100.0); MEAN CORPUSCULAR HGB 33.5 pG CALC (26.0-32.0); MEAN CORPUSCULAR HGB CONC 32.8 g/dL CAL (32.0-36.0); NEUT# 2.4 thou/uL (2.00-7.15); RED BLOOD COUNT 2.36 mill/uL (4.20-5.60); RED CELL DISTRI WIDTH 14.8 % (11.5-15.5)
[2022-06-06 05:35] LABS: INTERNATIONAL NORMALIZED RATIO 2.3 RATIO (0.7-1.3); PROTHROMBIN TIME 22.3 SECONDS (9.0-12.5)
[2022-06-06 05:37] LABS: ANION GAP 6 (6-22 (CALC)); BUN 16 mg/dL (8-23); BUN/CREATININE RATIO 16 (12-20 (CALC)); CARBON DIOXIDE 28 mmol/l (22-30); CHLORIDE 108 mmol/l (95-108); GFR FOR AFR.AMER. > 60 ML/MIN (>=60 (CALC)); GFR OTHER RACES 54 ML/MIN (>=60 (CALC)); MAGNESIUM 1.3 mg/dL (1.6-2.3); POTASSIUM 3.6 mmol/l (3.5-5.1); SODIUM 138 mmol/l (137-146)
--- NOTE | 2022-06-06 08:00 | NUR ---
Patient is alert and orientated. SR on Monitor with heart rate at 77. On RA. Vital signs stable. Denies pain at this time. Denies any additional needs at this time Saftey measures are in place.
--- NOTE | 2022-06-06 12:00 | NUR ---
PATIENT IS ASLEEP IN BED, SAFETY MEASURES ARE MET. VITAL SIGNS ARE STABLE. nO NEEDS AT THIS TIME.
--- NOTE | 2022-06-06 16:00 | NUR ---
PATIENT IS AWAKE IN BED WATCHING TV. DENIES PAIN AT THIS TIME, AND NO IMMEDIATE NEEDS. VITAL SIGNS ARE STABLE AND SAFETY MEASURES ARE IN PLACE
--- NOTE | 2022-06-06 19:05 | NUR ---
RECIEVED REPORT ON PT.PT RESTING IN BED. PICC FLUSHED, SALINE LOCKED. PT DENIES PAIN. BREATHING IS EVEN AND NON LABORED, NO O2 IN PLACE. PT DENIES PAIN OR DISCOMFORT. TODAY PT SEEMS MORE TIRED AND DROWSY, IN A SLUGGISH MOOD. DENIES ANY NEEDS AT THIS TIME. ALL SAFETY PRECAUTIONS IN PLACE AT THIS TIME
--- NOTE | 2022-06-06 23:21 | NUR ---
PT ASLEEP, RESTING ON RIGHT SIDE. BEAR HUGGER IN PLACE. PT EASILY AROUSED, SLIGHTLY CONFUSED WHEN AWOKEN, EASILY REORIENTATED. DENIES PAIN, DISCOMFORT OR FURTHER NEEDS. ALL SAFETY PRECAUTIONS IN PLACE AT THIS TIME
--- NOTE | 2022-06-07 04:20 | NUR ---
PT IN BED. EASILY AROUSED. OBTAINED BLOOD DRAW VIA PICC. HERPARIN LOCKED. PT DENIES ANY NEEDS. ALL SAFETY PRECAUTIONS IN PLACE AT THIS TIME
[2022-06-07 04:26] VITALS: BP 97/55
[2022-06-07 05:33] LABS: INTERNATIONAL NORMALIZED RATIO 2.2 RATIO (0.7-1.3); PROTHROMBIN TIME 20.9 SECONDS (9.0-12.5)
[2022-06-07 06:30] VITALS: BP 96/54
--- NOTE | 2022-06-07 08:26 | NUR ---
PT RESTING IN ED WATCHING TV. ASSESSMENT COMPLETED. UPDATED PT ON CURRENT PLAN OF CARE. PT INDICATED UNDERSTANDING, STATES NO PAIN. TELE MONITOR IN PLACE, CONTINOUS MONITORING PER ED. FALL/SAFTEY PRECAUTION IN PLACE, CALL LIGHT WITHIN REACH
[2022-06-07 10:42] VITALS: BP 131/59
[2022-06-07] MEDS ORDERED: CEFAZOLIN500 MG IV ×2 (10:47→16:24)
[2022-06-07] MEDS ORDERED: LOVENOX40 MG/0.4 SC (10:47)
--- NOTE | 2022-06-07 12:15 | NUR ---
PT RESTING EATING LUNCH. NO DISTRESS NOTED. STATES NO NEEDS AT THIS TIME. FALL/SAFTEY PRECAUTION IN PLACE, CALL LIGHT WITHINR REACH
--- NOTE | 2022-06-07 14:52 | NUR ---
Discharge instructions given. Patient verbalizes understanding of same. Discharged in stable condition via [facility]. All belongings sent with pt.
== END 2022-06-07 14:52 | DRG 155 ==
LOC: ED 13:24 → ED-I 14:50 → ED 14:50 → ED-I 16:40 → ED 16:59 → MS2 17:00
PROVIDERS: Internal Medicine; Physician Assistant Surgical; ADMIT Internal Medicine; ATTEND Internal Medicine
PROC: 30233K1 Transfusion of Nonautologous Frozen Plasma into Peripheral Vein, Percutaneous Approach (ICD-10-PCS; principal; 2022-06-03)
PROC: 30233K1 Transfusion of Nonautologous Frozen Plasma into Peripheral Vein, Percutaneous Approach (ICD-10-PCS; 2022-06-03)
PROC: 02HV33Z Insertion of Infusion Device into Superior Vena Cava, Percutaneous Approach (ICD-10-PCS; 2022-06-04)
PROC: B518ZZA Fluoroscopy of Superior Vena Cava, Guidance (ICD-10-PCS; 2022-06-04)
DX: K11.21 Acute sialoadenitis (principal); E87.20 Acidosis, unspecified; L03.211 Cellulitis of face; R78.81 Bacteremia; I10 Essential (primary) hypertension; R79.1 Abnormal coagulation profile; T45.515A Adverse effect of anticoagulants, initial encounter; K21.9 Gastro-esophageal reflux disease without esophagitis; F32.A Depression, unspecified; M19.90 Unspecified osteoarthritis, unspecified site; B95.61 Methicillin susceptible Staphylococcus aureus infection as the cause of diseases classified elsewhere; Z86.711 Personal history of pulmonary embolism; Z86.73 Personal history of transient ischemic attack (TIA), and cerebral infarction without residual deficits; Z86.718 Personal history of other venous thrombosis and embolism; Z79.01 Long term (current) use of anticoagulants
CPT/HCPCS: G0378; J0692; J3475; Q9967